=== PATIENT | male | born 2005 | race African-American/Black ===

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

== ENCOUNTER 2023-04-25 15:55 | Emergency (ER) | payer MEDICAID, SELFPAY ==
[2023-04-25] MEDS ORDERED: Ibuprofen 800 MG TAB ONE (18:02)
== END 2023-04-25 18:11 | disposition home or self-care (01) ==
LOC: ERS 15:55
DX: S62.622A Displaced fracture of middle phalanx of right middle finger, initial encounter for closed fracture (principal); X58.XXXA Exposure to other specified factors, initial encounter

== ENCOUNTER 2024-06-24 09:45 | Emergency (ER) | payer OTHER, SELFPAY ==
[2024-06-24] MEDS ORDERED: Ketorolac Tromethamine 30 MG (1 mL) VIAL ONE (10:59)
[2024-06-24] MEDS ORDERED: diphenhydrAMINE 50 MG/ML VIAL ONE (10:59)
[2024-06-24] MEDS ORDERED: Acetaminophen 500 MG TAB ONE (10:59)
[2024-06-24] MEDS ORDERED: Metoclopramide HCl 10 MG (2 mL) VIAL ONE (10:59)
== END 2024-06-24 13:11 | disposition home or self-care (01) ==
LOC: ERS 09:45
DX: R51.9 Headache, unspecified (principal)
CPT/HCPCS: 96365; 96375; J1200; J1885; J2765